=== PATIENT | female | born 1990 | race Caucasian/White ===

== ENCOUNTER 2017-10-18 07:57 | Inpatient (IN) | payer BC ==
[2017-10-18] MEDS ORDERED: LACTATED RINGER'S 1,000 ML IV (08:44)
[2017-10-18] MEDS ORDERED: AMPICILLIN 2 GM/NS (PMX) 100 ML (08:50)
[2017-10-18] MEDS: AMPICILLIN 2 GM/NS (PMX) 100 ML IV (08:55)
[2017-10-18] MEDS: LACTATED RINGER'S 1,000 ML IV (08:55)
[2017-10-18] MEDS ORDERED: MISOPROSTOL 200 MCG TAB PR ×2 (09:00→11:00)
[2017-10-18] MEDS ORDERED: METHYLERGONOVINE 0.2 MG INJ IM ×2 (09:00→11:00)
[2017-10-18] MEDS ORDERED: OXYTOCIN 30 UNITS/LR 500 ML IV ×2 (09:00→11:00)
[2017-10-18] MEDS ORDERED: LIDOCAINE 1% (MPF) 30 ML INJ INJ (09:00)
[2017-10-18] MEDS ORDERED: MINERAL OIL LIGHT 10 ML VIAL TOP (09:00)
[2017-10-18] MEDS ORDERED: CARBOPROST 250 MCG INJ IM ×2 (09:00→11:00)
[2017-10-18] MEDS ORDERED: BUTORPHANOL 2 MG INJ IV (09:00)
[2017-10-18] MEDS: OXYTOCIN 30 UNITS/LR 500 ML IV ×2 (09:41→09:50)
[2017-10-18 10:24] LABS: WHITE BLOOD COUNT 13.5 10^3/ul (4.8-10.8)
[2017-10-18 10:24] LABS: ADD MAN DIFF? NO; BASOPHILS % 0.2 % (0.0-2.0); EOSINOPHILS # 0.1 10^3/ul (0.0-0.5); EOSINOPHILS % 0.4 % (0.0-7.0); HEMOGLOBIN 12.2 g/dl (12.0-16.0); LYMPHOCYTES # 1.2 10^3/ul (0.8-2.9); LYMPHOCYTES % 9.2 % (15.0-51.0); MEAN CORPUSCULAR HEMOGLOBIN 29.9 pg (29.0-33.0); MEAN CORPUSCULAR HGB CONC 34.9 g/dl (32.0-37.0); MEAN CORPUSCULAR VOLUME 85.8 fl (82.0-101.0); MEAN PLATELET VOLUME 11.6 fl (7.4-10.4); MONOCYTE # 0.6 10^3/ul (0.3-0.9); MONOCYTES % 4.5 % (0.0-11.0); NEUTROPHIL # 11.5 10^3/ul (1.6-7.5); PLATELET COUNT 221 10^3/UL (140-415); RED BLOOD COUNT 4.08 10^6/ul (4.20-5.40); RED CELL DISTRIBUTION WIDTH 14.6 % (11.5-14.5)
[2017-10-18] MEDS: IBUPROFEN 600 MG TAB PO ×4 (10:38→23:44)
[2017-10-18] MEDS ORDERED: ZOLPIDEM 5 MG TAB PO (11:00)
[2017-10-18] MEDS ORDERED: BENZOCAINE 20% 56 ML SPRAY TOP (11:00)
[2017-10-18] MEDS ORDERED: DIBUCAINE 1% 30 GM OINT PR (11:00)
[2017-10-18] MEDS ORDERED: HYDROCODONE/APAP (5/325) TAB PO ×2 (11:00)
[2017-10-18 11:03] LABS: INR 0.95; PROTIME 12.8 Sec (11.9-14.9)
[2017-10-18 11:04] LABS: PARTIAL THROMBOPLASTIN TIME 27.2 Sec (25.0-35.0)
[2017-10-18 11:16] LABS: HEPATITIS B SURFACE ANTIGEN NEGATIVE (NEGATIVE)
[2017-10-18] MEDS ORDERED: AMPICILLIN 1 GM/NS (PMX) 50 ML IV (13:00)
[2017-10-18] MEDS: LACTATED RINGER'S 1,000 ML IV* ×3 (14:28→19:39)
[2017-10-18] MEDS: MAGNESIUM HYDROXIDE 30ML CUP PO (20:52)
[2017-10-18] MEDS: SENNA/DOCUSATE NA (8.6MG/50MG) TAB PO (20:52)
[2017-10-18 22:50] LABS: RAPID PLASMA REAGIN NONREACTIVE (NR)
[2017-10-19] MEDS: IBUPROFEN 600 MG TAB PO ×4 (05:36→23:34)
[2017-10-19 08:24] LABS: ADD MAN DIFF? NO
[2017-10-19 08:27] LABS: BASOPHILS % 0.4 % (0.0-2.0); EOSINOPHILS # 0.1 10^3/ul (0.0-0.5); EOSINOPHILS % 1.1 % (0.0-7.0); HEMATOCRIT 31.5 % (37.0-47.0); HEMOGLOBIN 10.9 g/dl (12.0-16.0); LYMPHOCYTES # 1.7 10^3/ul (0.8-2.9); LYMPHOCYTES % 17.9 % (15.0-51.0); MEAN CORPUSCULAR HEMOGLOBIN 29.7 pg (29.0-33.0); MEAN CORPUSCULAR HGB CONC 34.6 g/dl (32.0-37.0); MEAN CORPUSCULAR VOLUME 85.8 fl (82.0-101.0); MEAN PLATELET VOLUME 10.8 fl (7.4-10.4); MONOCYTE # 0.6 10^3/ul (0.3-0.9); MONOCYTES % 6.8 % (0.0-11.0); NEUTROPHIL # 6.8 10^3/ul (1.6-7.5); NEUTROPHILS % 73.2 % (39.0-77.0); PLATELET COUNT 193 10^3/UL (140-415); RED BLOOD COUNT 3.67 10^6/ul (4.20-5.40); RED CELL DISTRIBUTION WIDTH 14.6 % (11.5-14.5)
[2017-10-19 08:27] LABS: WHITE BLOOD COUNT 9.4 10^3/ul (4.8-10.8)
[2017-10-19] MEDS: SENNA/DOCUSATE NA (8.6MG/50MG) TAB PO ×2 (09:49→20:34)
[2017-10-19] MEDS: MAGNESIUM HYDROXIDE 30ML CUP PO ×2 (09:49→20:36)
[2017-10-19] MEDS: LACTATED RINGER'S 1,000 ML IV* ×2 (10:59→19:00)
[2017-10-19] MEDS: WITCH HAZEL/GLYCERIN PAD PR (20:34)
[2017-10-19] MEDS: LANOLIN 7 GM TUBE TOP (20:35)
[2017-10-20] MEDS: LACTATED RINGER'S 1,000 ML IV* (02:59)
[2017-10-20] MEDS: IBUPROFEN 600 MG TAB PO ×2 (05:40→12:22)
[2017-10-20] MEDS: MAGNESIUM HYDROXIDE 30ML CUP PO (08:34)
[2017-10-20] MEDS: SENNA/DOCUSATE NA (8.6MG/50MG) TAB PO (08:34)
[2017-10-20] MEDS: DIPHTH/TET/ACEL PERTUSS (ADULT) 0.5 ML VIAL IM* (09:32)
[2017-10-20] MEDS: MEASLES,MUMPS,RUBELLA VACCINE INJ SC* (09:33)
[2017-10-20] MEDS: VARICELLA VACCINE LIVE/PF 1,350 UNIT/0.5 ML ML SC* (09:33)
== END 2017-10-20 14:25 | disposition home or self-care (01) | DRG 775 ==
LOC: OBT 07:57 → L-D 07:57 → OBT 08:38 → L-D 08:30 → PP1 10:50
PROVIDERS: Obstetrics & Gynecology
PROC: 10E0XZZ Delivery of Products of Conception, External Approach (ICD-10-PCS; principal; 2017-10-18)
PROC: 4A1HXCZ Monitoring of Products of Conception, Cardiac Rate, External Approach (ICD-10-PCS; 2017-10-18)
DX: O80 Encounter for full-term uncomplicated delivery (principal); Z37.0 Single live birth; Z3A.38 38 weeks gestation of pregnancy
CPT/HCPCS: 85025; 85610; 85730; 86592; 86900; 86901; 87340; 90715; 90716